=== PATIENT | male | born 2000 | race Caucasian/White ===

== ENCOUNTER 2019-10-11 17:14 | Emergency (ER) | payer OTHER ==
[2019-10-11 17:27] VITALS: BP 140/75
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
== END 2019-10-11 17:53 | disposition home or self-care (01) ==
LOC: ER 17:14
DX: S29.012A Strain of muscle and tendon of back wall of thorax, initial encounter (principal); V49.50XA Passenger injured in collision with unspecified motor vehicles in traffic accident, initial encounter; R11.0 Nausea; Z87.891 Personal history of nicotine dependence
CPT/HCPCS: 99283